=== PATIENT | male | born 1970 | race Caucasian/White ===

== ENCOUNTER → 2017-09-23 | Outpatient (CLI) | payer BC ==
--- NOTE | 2017-09-28 09:12 | XR ---
EXAM TYPE: LUMBAR SPINE X RAY SERIES COMPARISON: NONE HISTORY: Back pain TECHNIQUE: 3 views are submitted. FINDINGS: Alignment is anatomic. The pedicles are intact. The transverse processes are intact. There is no s pondylolysis or spondylolisthesis. Hypertrophic changes spine with multilevel severe degenerative di sc disease and facet arthropathy. Mild diffuse osteopenia. Curvature the spine noted. IMPRESSION: 1. Multilevel severe degenerative disc disease.
== END | disposition home or self-care (01) ==
LOC: RADXRMAIN 08:21
PROVIDERS: ATTEND Family Medicine
DX: M51.36 Other intervertebral disc degeneration, lumbar region (principal)
CPT/HCPCS: 72100

== ENCOUNTER → 2020-07-03 | Outpatient (CLI) | payer BC, OTHER ==
--- NOTE | 2020-07-03 12:31 | CONS ---
CONSULTATION DATE OF SERVICE: 07/03/2020 This 49-year-old gentleman who has been evaluated in Sleep Center for possible obstructive sleep apnea-hypopnea syndrome. HISTORY OF PRESENT ILLNESS/SLEEP-WAKE EVALUATION: The patient's usual sleep schedule on weekdays from 10 to 11 p.m. until 7 to 7:30 a.m. and on weekends from 11 p.m. to 5 or 6 a.m. Usually no problems with falling asleep, although patient has TV in bedroom. Patient prefers to sleep on the side position. He snores loudly according to his , and he wakes up from sleep three or four times with nocturia and sweating. In the morning, patient wakes up tired. Usually does not take naps. [place] Sleepiness Scale is 4. No history of hypnagogic hallucinations, sleep paralysis, or cataplexy. PAST MEDICAL HISTORY: Positive for hypertension, anxiety, low testosterone level. PAST SURGICAL HISTORY: Nasal surgery for nasal septum deviation, left ankle surgery for reconstruction of left ankle secondary to trauma in 1982. MEDICATIONS: Citalopram 20 mg once a day, bupropion 150 mg once a day, lisinopril hydrochlorothiazide 10-12.5 mg once a day, 5 mg once a day, testosterone shots every 2 weeks. FAMILY HISTORY: Cancer, hypertension, thyroid problems. PHYSICAL EXAMINATION: GENERAL: A gentleman without distress. VITAL SIGNS: BP 165/85, HR 68, RR 16, height 6 feet 1/2 inch, weight 275.2 pounds, temperature 97.1, oxygen saturation on room 96%, body mass index 36.9. HEENT: PERRLA, EOMI. Oropharynx extremely low position of soft palate, Mallampati 4, NECK: Wide 18-1/2 inches in circumference. LUNGS: Clear to percussion and to auscultation. Good air exchange. No wheezing or rhonchi. HEART: S1, S2 regular. No murmurs, gallops, or rubs. ABDOMEN: Soft and nontender. Bowel sounds are present. No organomegaly appreciated. EXTREMITIES: No clubbing or cyanosis. CELL MAKER: Awake, alert, and oriented X3. Cranial nerves 2 to 7 intact. There is no fasciculation or atrophy. noted. No focal deficits observed. IMPRESSION: 1. Loud snoring, multiple awakenings from sleep with nocturia, low position of soft palate, Mallampati, wide neck 18-1/2 inches in circumference, obstructive sleep apnea-hypopnea syndrome. 2. Obese, body mass index 36.9. 3. History of anxiety. 4. Low testosterone level. 5. Status post nasal surgery for nasal septum deviation. 6. Status post surgery for trauma of left ankle in 1982. PLAN: 1. Home sleep apnea test for evaluation of patient breathing during sleep. 2. CPAP/BiPAP titration if sleep study confirms obstructive sleep apnea-hypopnea syndrome. 3. Preferable position during sleep on the side. 4. No driving if patient feels any sleepiness. 5. I will see patient for follow up visit to explain results of testing and following plan. Thank you very much for referring this patient for consultation. Sincerely, Gino Kasper MD, PhD, FAASM Diplomat of [employer] [place] [employer] Dehydrator of [facility] [place] MMODL / IJN: [id number] /
== END ==
LOC: SLEEP 10:20
PROVIDERS: ATTEND Internal Medicine
DX: G47.33 Obstructive sleep apnea (adult) (pediatric) (principal); E66.9 Obesity, unspecified; F41.9 Anxiety disorder, unspecified; I10 Essential (primary) hypertension; E34.9 Endocrine disorder, unspecified; Z98.890 Other specified postprocedural states; Z68.36 Body mass index [BMI] 36.0-36.9, adult
CPT/HCPCS: 99211

== ENCOUNTER 2020-09-17 07:58 | Outpatient (CLI) | payer BC, OTHER ==
--- NOTE | 2020-09-18 21:22 | SLS ---
SLEEP STUDY PROCEDURE: CPAP titration. DATE OF SERVICE: 09/17/2020 CLINICAL: Titration with positive air pressure has been done for correction of respiratory abnormalities during sleep. DESCRIPTION OF PROCEDURE: The standard montage for clinical polysomnography included the electroencephalogram, the electrocardiogram, the mentalis surface electromyography and Lead II cardiography. The respiratory battery consisted of measurements of nasal /buccal air flow, pressure transducer measurements from the nose, thoracic and /or abdominal effort and intercostal surface electromyography. Video monitoring has been done to check for any parasomnia events. Nocturnal oxyhemoglobin saturations were obtained by finger oximetry. Step-quispe titration with positive airway pressure was utilized to control respiratory events. RESULTS: During titration, sleep efficiency was normal 91.5%. Latency to sleep onset in normal range 8.9 minutes. Sleep architecture showed good amount of delta sleep 14.9%, and REM sleep slightly decreased to 17.5%. Heart rate in the range between 53 and 91. EMG showed 50.1 periodic limb movements per hour with 3.4 microarousals per hour. CPAP titration done up to the pressure of 10 cm of water. At 9 cm of water, apnea- hypopnea index was 0.7 with oxygen level above 90.2%. The patient was at that pressure in REM sleep for 31 minutes and in non-REM sleep for 52 minutes. IMPRESSION: 1. Severe obstructive sleep apnea-hypopnea syndrome; apnea-hypopnea index 50.4 with oxygen desaturation to 79% most on control with CPAP at 9 cm of water. 2. Severe periodic limb movements have been documented during titration. 3. Obesity, BMI 36.6. 4. History of anxiety. 5. Low testosterone level. 6. Status post nasal surgery for nasal septum deviation. 7. Status post surgery for trauma of left ankle. PLAN: 1. The patient will have treatment with positive air pressure equipment and should use it every night for the whole night. 2. Watching weight. 3. Sleep hygiene with regular time in bed for at least 8 hours. 4. No driving if feeling any sleepiness. 5. I will see the patient for follow up visit to explain the results of the test, recommendations, check compliance with treatment and make any necessary adjustment related to mask fitting, pressure and humidification Thank you very much for allowing me to participate in management of patient's care. Sincerely, Gino Kasper MD, PhD, FAASM Diplomat of [employer] Sleep Medicine Board of [place] [employer] of [employer] Medicine Section Beamer of [facility] [place] MMFLEX / BERNY: [id number] /
== END 2020-09-17 17:28 | disposition home or self-care (01) ==
LOC: SLEEP 07:58
PROVIDERS: ATTEND Internal Medicine
DX: G47.33 Obstructive sleep apnea (adult) (pediatric) (principal); G47.36 Sleep related hypoventilation in conditions classified elsewhere; E66.9 Obesity, unspecified; E29.1 Testicular hypofunction; F41.9 Anxiety disorder, unspecified; Z68.36 Body mass index [BMI] 36.0-36.9, adult; Z98.890 Other specified postprocedural states; Z99.89 Dependence on other enabling machines and devices
CPT/HCPCS: 95811

== ENCOUNTER → 2020-12-26 | Outpatient (CLI) | payer BC, OTHER ==
--- NOTE | 2020-12-26 22:05 | SFUN ---
SLEEP CENTER FOLLOW UP NOTE DATE OF SERVICE: 12/26/2020 This 50-year-old gentleman has been followed in Sleep Center for treatment of obstructive sleep apnea-hypopnea syndrome. The patient had a sleep study which showed that he has extremely severe obstructive sleep apnea-hypopnea syndrome with apnea-hypopnea index 50.4 and oxygen desaturation to 79%, and I discussed results of his sleep studies with the patient in detail. He had titration for correction of respiratory abnormalities, and subsequently I ordered for him a CPAP machine. Today is his first visit after he started to use his CPAP equipment. The patient is able to use his CPAP equipment every night. He sleeps much better with the CPAP unit. No significant problems with the machine, mask fitting or humidification. [place] Sleepiness Scale today is 3, which is perfect. I checked his CPAP unit. Range of the pressure is 7 to 14, average 10.6. Usage / nights and nights for more than 4 hours, average 5.9 hours per night. Leak is 44 L/minute, which is slightly high, but apnea-hypopnea index is absolutely perfect, only 0.3. MEDICATIONS: 1. Lisinopril/hydrochlorothiazide 10/12.5 mg once a day. 2. Citalopram 20 mg once a day. 3. Testosterone shots. PHYSICAL EXAMINATION: GENERAL: Pleasant patient in no distress. VITAL SIGNS: BP 160/93, HR 71, RR 20, height 6 feet 1 inch, weight 283.0, temperature 97, oxygen saturation at room air 97%. HEENT: PERRLA, EOMI, evaluation of oropharynx showed tongue protrudes midline. Extremely low position of soft palate; Mallampati IV. NECK: Supple, no JVD. Thyroid is not palpable. LUNGS: Clear to percussion and to auscultation. Good air exchange. No wheezing or rhonchi. HEART: S1, S2 regular. No murmurs, gallops, or rubs. ABDOMEN: Soft and nontender. Bowel sounds are present. No organomegaly appreciated. EXTREMITIES: No clubbing or cyanosis. CERAMIC CHEMIST: Awake, alert, and oriented X3. Cranial nerves 2 to 7 intact. There is no fasciculation or atrophy. noted. No focal deficits observed. IMPRESSION: 1. Severe obstructive sleep apnea-hypopnea syndrome; apnea-hypopnea index 50.4 with oxygen desaturation to 79%. Patient demonstrated great compliance with treatment. Normal respiration on CPAP. Apnea-hypopnea index 0.3. 2. Obesity. 3. History of anxiety. 4. Low testosterone level. 5. Status post nasal surgery for nasal septum deviation. 6. Status post surgery for trauma of left ankle in 1982. PLAN: 1. I discussed with the patient the necessity to take off all water for the humidifier in the morning and let it dry. 2. Patient will continue to use PAP equipment every night for the whole night. 3. Sleep hygiene with regular time in bed for at least 7-1/2 to 8 hours. 4. Precautions related to driving. No driving if feeling sleepiness. 5. I will maintain all necessary prescription for PAP supplies including mask, tube, filters. 6. Watching weight. 7. Follow-up visit in 6 months or earlier if patient has any problems. Thank you very much for allowing me to participate in the management of your patient. Sincerely, Gino Kasper MD, PhD, FAASM Diplomat of [employer] Sleep Medicine Board of [employer] Board of Internal Medicine Staff Development Manager of [facility] [place] MMODL / KAELYNN: [id number] /
== END ==
LOC: SLEEP 12:56
PROVIDERS: ATTEND Internal Medicine
DX: G47.33 Obstructive sleep apnea (adult) (pediatric) (principal); G47.36 Sleep related hypoventilation in conditions classified elsewhere; E66.9 Obesity, unspecified; F41.9 Anxiety disorder, unspecified; E29.1 Testicular hypofunction; Z99.89 Dependence on other enabling machines and devices; Z98.890 Other specified postprocedural states

== ENCOUNTER → 2021-06-26 | Outpatient (CLI) | payer BC, OTHER ==
--- NOTE | 2021-06-26 13:04 | SFUN ---
SLEEP CENTER FOLLOW UP NOTE DATE OF SERVICE: 06/26/2021 This 50-year-old gentleman has been followed in Sleep Center for treatment of obstructive sleep apnea-hypopnea syndrome. The patient continues to use CPAP equipment every night for the whole night. No significant problems getting his CPAP supplies on time. He is changing his filter at least once a month. [place] Sleepiness Scale today is 5, which is normal. I checked his CPAP unit. Air filter is in good shape. Pressure is in the range of 7 to 14, average 12.8 cm of water. Usage is 30/30 nights and 27/30 nights for more than 4 hours, average 7.1 hours per night. Leak is 32 L/minute, which is borderline. Apnea- hypopnea index is 0.4, which is normal. MEDICATIONS: 1. Citalopram 20 mg once a day. 2. Lisinopril 12.5 mg once a day. 3. Wellbutrin 150 mg once a day. 4. Testosterone shots. PHYSICAL EXAMINATION: GENERAL: Pleasant patient in no distress. VITAL SIGNS: BP 150/77, HR 73, RR 16, weight 283.4, height 6 feet 1 inch, temperature 97.1, oxygen saturation at room air 95%. HEENT: PERRLA, EOMI, evaluation of oropharynx showed tongue protrudes midline. Extremely low position of soft palate; Mallampati IV. NECK: Supple, no JVD. Thyroid is not palpable. LUNGS: Clear to percussion and to auscultation. Good air exchange. No wheezing or rhonchi. HEART: S1, S2 regular. No murmurs, gallops, or rubs. ABDOMEN: Obese. EXTREMITIES: No clubbing or cyanosis. CLOTH DOFFER: Awake, alert, and oriented X3. Cranial nerves 2 to 7 intact. There is no fasciculation or atrophy. noted. No focal deficits observed. IMPRESSION: 1. Severe obstructive sleep apnea-hypopnea syndrome. Original apnea-hypopnea index 50.4. The patient demonstrated practically 100% compliance with treatment, benefitting from treatment. Normal respiration on CPAP. 2. Obesity. 3. History of anxiety. 4. Low testosterone level. 5. Status post nasal surgery for nasal septum deviation. 6. Status post surgery for trauma of left ankle in 1982. PLAN: 1. Patient will continue to use PAP equipment every night for the whole night. 2. Sleep hygiene with regular time in bed for at least 7-1/2 to 8 hours. 3. Precautions related to driving. No driving if feeling sleepiness. 4. I will maintain all necessary prescription for PAP supplies including mask, tube, filters. 5. Watching weight. 6. Follow-up visit in 6 months or earlier if patient has any problems. Thank you very much for allowing me to participate in the management of your patient. Sincerely, Gino Kasper MD, PhD, FAASM Diplomat of [place] [employer]ties Sleep Medicine Board of [place] Board of Internal Medicine Agricultural Education Professor of [facility] [place] MMODL / IJN: [id number] /
== END ==
LOC: SLEEP 10:41
PROVIDERS: ATTEND Internal Medicine
DX: G47.33 Obstructive sleep apnea (adult) (pediatric) (principal); Z99.89 Dependence on other enabling machines and devices; E66.9 Obesity, unspecified; F41.9 Anxiety disorder, unspecified; Z98.890 Other specified postprocedural states; Z86.39 Personal history of other endocrine, nutritional and metabolic disease; Z87.09 Personal history of other diseases of the respiratory system

== ENCOUNTER → 2022-06-25 | Outpatient (CLI) | payer BC, OTHER ==
--- NOTE | 2022-06-25 11:17 | P.PN ---
Subjective DATE: 06/25/2022 FOLLOW UP VISIT. Patient with obstructive sleep apnea hypopnea syndrome return to sleep center for follow-up visit. Information from previous visit have been reviewed. Patient is using PAP equipment every night for the whole night, getting PAP supplies in time. The patient does not have significant problems with the mask, PAP unit and humidification. [place] sleepiness scale is 5, which is normal. I checked information from PAP unit and explaining to the patient in details. PAP unit pressure 7-14, average 12 cm H2O. Usage is 100 % for more then 4 hours, average 7.2 hours per night. Leak is 25 l/m, which is in acceptable range. Apnea Hypopnea Index is perfect 0.2. MEDICATIONS:1. Lisinopril/hydrochlorothiazide 2. Citalopram 20 mg once a day 3. Levocetirizine 5 mg once a day 4. Bupropion 150 mg once a day During physical exam: GENERAL: A pleasant patient without any distress. VITAL SIGNS: BP 180/100, HR 81, RR 16, weight 286.8, temperature 98.2, oxygen saturation at room air 96 % . HEENT: PERRLA, EOMI.low position of soft palate, Mallapati 4 . NECK: Supple. No JVD. LUNGS: Clear to percussion and to auscultation. Good air exchange. No wheezing or rhonchi. HEART: S1, S2 regular. ABDOMEN: Soft and nontender.[] EXTREMITIES: No clubbing or cyanosis. DIVISION SUPERVISOR: Awake, alert, and oriented x3. No focal deficit. Impressions: 1. Obstructive sleep apnea-hypopnea syndrome. Patient demonstrated great compliance with treatment, benefiting from treatment. 2. Obesity, body mass index 38.2, patient increased weight on 3 pounds comparing with previous visit. 3. History of anxiety. 4. Low testosterone level. 5. Status post nasal surgery for nasal septum deviation. 6. Status post surgical treatment for left ankle trauma in the past 1982. Plan: 1. Continue using PAP equipment every night for the whole night. 2. To change air filter at least 1-2 times per month. 3. PAP unit should stay lower then position of the head. 4. Advised patient to remove all remaining water from humidifier canister daily and make it dry after each usage. Refill canister with fresh distilled water before each usage. 5. Sleep hygiene with regular time in bed for at least 8 hours. 6. Precautions related to driving. No driving if feel any sleepiness. 7. I will maintain prescription for PAP supplies including mask, tube, filters. 8. Follow up visit in 6 months or earlier if patient has any problems. 9. Watching and losing weight. Thank you very much for allowing me to participate in the management of your patient. Gino Kasper MD, PhD, FAASM. Diplomat of [place] Board [employer] Sleep Medicine, Sleep Medicine Board by [place] [employer] Medicine Service And Repair Supervisor of [facility] [place]
== END ==
LOC: SLEEP 10:55
PROVIDERS: ATTEND Internal Medicine
DX: G47.33 Obstructive sleep apnea (adult) (pediatric) (principal); E66.9 Obesity, unspecified; Z68.38 Body mass index [BMI] 38.0-38.9, adult; F41.9 Anxiety disorder, unspecified; R63.4 Abnormal weight loss; Z79.899 Other long term (current) drug therapy; Z99.89 Dependence on other enabling machines and devices; Z98.890 Other specified postprocedural states
CPT/HCPCS: 99212

== ENCOUNTER → 2022-08-18 | Outpatient (CLI) | payer BC, OTHER ==
--- NOTE | 2022-08-18 13:55 | CA ---
Transthoracic Echo Report Name: Vlad Maddox Age: 51 Gender: M : 1970 Exam Date: 08/18/2022 08:30 Exam Location: [place] [facility] Ht (in): 74 Wt (lb): 275 Ordering Physician: Skyler Dodson MD Attending/Referring Phys: Skyler Dodson MD Chief Ultrasound Technologist Lisset Taylor [facility] Procedure CPT: Indications: I10 HTN Cardiac Hx: Technical Quality: Fair Contrast 1: Total Dose (mL): Contrast 2: Total Dose (mL): MEASUREMENTS (Male / Female) Normal Values 2D ECHO LV Diastolic Diameter PLAX 5.6 cm 4.2 - 5.9 / 3.9 - 5.3 cm LV Systolic Diameter PLAX 3.4 cm IVS Diastolic Thickness 1.6 cm 0.6 - 1.0 / 0.6 - 0.9 cm LVPW Diastolic Thickness 1.7 cm 0.6 - 1.0 / 0.6 - 0.9 cm LV Relative Wall Thickness 0.6 RV Internal Dim ED PLAX 3.7 cm LA Volume 64.0 cm??? 18 - 58 / 22 - 52 cm??? M-MODE Aortic Root Diameter MM 3.2 cm LA Systolic Diameter MM 4.3 cm LA Ao Ratio MM 1.3 AV Cusp Separation MM 2.2 cm DOPPLER AV Peak Velocity 131.7 cm/s AV Peak Gradient 6.9 mmHg AV Mean Velocity 107.1 cm/s AV Mean Gradient 4.8 mmHg AV Velocity Time Integral 26.9 cm LVOT Peak Velocity 120.2 cm/s LVOT Peak Gradient 5.8 mmHg LVOT Velocity Time Integral 25.7 cm MV Area PHT 4.2 cm??? Mitral E Point Velocity 76.7 cm/s Mitral A Point Velocity 68.3 cm/s Mitral E to A Ratio 1.1 MV Deceleration Time 179.2 ms MV E' Velocity 10.0 cm/s Mitral E to MV E' Ratio 7.7 TR Peak Velocity 172.9 cm/s TR Peak Gradient 12.0 mmHg FINDINGS Left Ventricle Moderately increased left ventricular wall thickness. Left ventricular cavity size normal. Normal left ventricular systolic function with no obvious regional wall motion abnormalities. Left ventricular ejection fraction is estimated at 55-60 %. Right Ventricle Mild right ventricular dilatation. Right ventricular systolic pressure within normal limits. Right Atrium Normal right atrial size. Left Atrium Mildly increased left atrial volume. Mitral Valve Structurally normal mitral valve. No mitral stenosis or prolapse. Mild mitral regurgitation. Aortic Valve Trileaflet aortic valve. No aortic valve stenosis or regurgitation. Tricuspid Valve Structurally normal tricuspid valve. Mild tricuspid regurgitation. Pulmonic Valve Trace pulmonic regurgitation. Pericardium No pericardial effusion. Aorta Normal size aortic root and proximal ascending aorta. CONCLUSIONS Left ventricular ejection fraction 55-60% Moderately increased left ventricular wall thickness Mild mitral regurgitation Mild tricuspid regurgitation No pericardial effusion Previewed by: Dr. Melo Garcia DO (Electronically Signed) Final Date: 18 August 2022 13:54
== END | disposition home or self-care (01) ==
LOC: RADECHMAIN 08:14
PROVIDERS: ATTEND Family Medicine
DX: I08.1 Rheumatic disorders of both mitral and tricuspid valves (principal); I10 Essential (primary) hypertension
CPT/HCPCS: 93306

== ENCOUNTER → 2023-01-20 | Outpatient (CLI) | payer BC, OTHER ==
--- NOTE | 2023-01-20 11:00 | P.PN ---
Subjective DATE: 01/20/2023 FOLLOW UP VISIT. Patient with obstructive sleep apnea hypopnea syndrome return to sleep center for follow-up visit. Information from previous visit have been reviewed. Patient is using PAP equipment every night for the whole night, getting PAP supplies in time. The patient does not have significant problems with the mask, PAP unit and humidification. [place] sleepiness scale is 5, which is normal. I checked information from PAP unit. PAP unit pressure 7-14, average 13.6 cm H2O. Usage is 100 % for more then 4 hours, average 8.1 hours per night. Leak is 25 l/m, which is in acceptable range. Apnea Hypopnea Index is 0.5, which is normal. MEDICATIONS:1. Bupropion 150 mg once a day 2. Irbesartan 300-12.5 mg once a day 3. Citalopram 20 mg once a day During physical exam: GENERAL: A pleasant patient without any distress. VITAL SIGNS: BP 160/93, HR 74, RR 12 , weight 284.2, temperature 98.3, oxygen saturation at room air 97 % . HEENT: PERRLA, EOMI.low position of soft palate, Mallapati 4 . NECK: Supple. No JVD. LUNGS: Clear to percussion and to auscultation. Good air exchange. No wheezing or rhonchi. HEART: S1, S2 regular. ABDOMEN: Soft and nontender.[] EXTREMITIES: No clubbing or cyanosis. AUTOMOBILE AND PROPERTY UNDERWRITER: Awake, alert, and oriented x3. No focal deficit. Impressions: 1. Obstructive sleep apnea-hypopnea syndrome. Patient demonstrated great compliance with treatment, benefiting from treatment. 2. Obesity, BMI 38.5. 3. History of anxiety. 4. History of low testosterone level. 5. Hypertension. 6. Status post nasal surgery for nasal septum deviation. Plan: 1. Continue using PAP equipment every night for the whole night. 2. To change air filter at least 1-2 times per month. 3. PAP unit should stay lower then position of the head. 4. Advised patient to remove all remaining water from humidifier canister daily and make it dry after each usage. Refill canister with fresh distilled water before each usage. 5. Sleep hygiene with regular time in bed for at least 8 hours. 6. Precautions related to driving. No driving if feel any sleepiness. 7. I will maintain prescription for PAP supplies including mask, tube, filters. 8. Watching and losing weight. 9. Follow up visit in 6 months or earlier if patient has any problems. Thank you very much for allowing me to participate in the management of your patient. Gino Kasper MD, PhD, FAASM. Diplomat of [place] [employer] Sleep Medicine, Sleep Medicine Board by [place] [employer] Internal Medicine Director Of [place] of [facility] [place]
== END ==
LOC: 3 N SLEEP 10:31
PROVIDERS: ATTEND Internal Medicine
DX: G47.33 Obstructive sleep apnea (adult) (pediatric) (principal); E66.9 Obesity, unspecified; F41.9 Anxiety disorder, unspecified; I10 Essential (primary) hypertension; Z68.38 Body mass index [BMI] 38.0-38.9, adult; Z79.899 Other long term (current) drug therapy; Z98.890 Other specified postprocedural states; Z99.89 Dependence on other enabling machines and devices; Z86.39 Personal history of other endocrine, nutritional and metabolic disease
CPT/HCPCS: 99212

== ENCOUNTER → 2023-08-05 | Outpatient (CLI) | payer BC, OTHER ==
--- NOTE | 2023-08-05 12:04 | P.PROGSL ---
Subjective DATE: 08/05/2023 FOLLOW UP VISIT. Patient with obstructive sleep apnea hypopnea syndrome return to sleep center for follow-up visit. Information from previous visit have been reviewed. Patient is using PAP equipment every night for the whole night, getting PAP supplies in time. The patient does not have significant problems with the mask, PAP unit and humidification. [place] sleepiness scale is 3, which is normal. I checked information from PAP unit. PAP unit pressure 7-14, average 12.7 cm H2O. Usage is 100% for more then 4 hours, average 8.2 hours per night. Leak is increased to 35 l/m, patient has watkins and mustache. Apnea Hypopnea Index is 0.4, which is normal. MEDICATIONS: Please see below During physical exam: GENERAL: A pleasant patient without any distress. VITAL SIGNS: Please see below, weight 288.8 pounds, BMI 39.0. HEENT: PERRLA, EOMI.low position of soft palate, Mallapati 4 . Slight irritation of the skin of the face probably related to rubbing from the mask. NECK: Supple. No JVD. LUNGS: Clear to percussion and to auscultation. Good air exchange. No wheezing or rhonchi. HEART: S1, S2 regular. ABDOMEN: Soft and nontender. Obese EXTREMITIES: No clubbing or cyanosis. VISUAL JOURNALIST: Awake, alert, and oriented x3. No focal deficit. Impressions: 1. Obstructive sleep apnea-hypopnea syndrome. Patient demonstrated great compliance with treatment, benefiting from treatment. Slight irritation of skin of the face probably related to rubbing from the mask. 2. Obesity, BMI 39.0, patient increased weight on 4 pounds comparing with previous visit. 3. Hypertension. 4. History of anxiety. 5. History of low testosterone level. 6. Status post nasal surgery for nasal septum deviation. Plan: 1. Continue using PAP equipment every night for the whole night. Patient may consider different style of fullface mask. Prescription for liner for full facemask was written. 2. To change air filter at least 1-2 times per month. 3. PAP unit should stay lower then position of the head. 4. Advised patient to remove all remaining water from humidifier canister daily and make it dry after each usage. Refill canister with fresh distilled water before each usage. 5. Sleep hygiene with regular time in bed for at least 8 hours. 6. Precautions related to driving. No driving if feel any sleepiness. 7. I will maintain prescription for PAP supplies including mask, tube, filters. 8. Follow up visit in 6 months or earlier if patient has any problems. 9. Watching and losing weight. Thank you very much for allowing me to participate in the management of your patient. Gino Kasper MD, PhD, FAASM. Diplomat of [place] [employer] Sleep [employer], Sleep Medicine Board by [place] [employer] Medicine Tip Inserter of [facility] [place] Objective - Vital Signs Vital Signs: Intake & Output 08/04/23 08/05/23 08/05/23 18:59 06:59 18:59 Weight 130.861 kg Home Medications: Home Medications Medication Instructions Recorded Confirmed Type Celecoxib 200 mg PO DAILY 08/05/23 08/05/23 History Citalopram Hydrobromide 20 mg PO DAILY 08/05/23 08/05/23 History [Citalopram HBr] Irbesartan/Hydrochlorothiazide 300 mg PO DAILY 08/05/23 08/05/23 History [Irbesartan-Hctz 300-12.5 mg Tb] Levocetirizine Dihydrochloride 5 mg PO DAILY 08/05/23 08/05/23 History amLODIPine BESYLATE 5 mg PO DAILY 08/05/23 08/05/23 History buPROPion HCL [buPROPion HCL Xl] 150 mg PO DAILY 08/05/23 08/05/23 History
== END ==
LOC: 3 N SLEEP 11:10
PROVIDERS: ATTEND Internal Medicine
DX: G47.33 Obstructive sleep apnea (adult) (pediatric) (principal); E66.9 Obesity, unspecified; L24.9 Irritant contact dermatitis, unspecified cause; I10 Essential (primary) hypertension; Z86.59 Personal history of other mental and behavioral disorders; Z98.890 Other specified postprocedural states; Z86.39 Personal history of other endocrine, nutritional and metabolic disease; Z99.89 Dependence on other enabling machines and devices; Z68.39 Body mass index [BMI] 39.0-39.9, adult; Z79.899 Other long term (current) drug therapy
CPT/HCPCS: 99212

== ENCOUNTER → 2024-05-18 | Outpatient (CLI) | payer BC, OTHER ==
[2024-05-18 11:00] VITALS: BP 155/83; PULSE 81; RESP 16; TEMP 98.5
--- NOTE | 2024-05-18 12:00 | P.PROGSL ---
Subjective DATE: 05/18/2024 FOLLOW UP VISIT. Patient with obstructive sleep apnea hypopnea syndrome return to sleep center for follow-up visit. Information from previous visit have been reviewed. Patient is using PAP equipment every night for the whole night, getting PAP supplies in time. The patient does not have significant problems with the mask, PAP unit and humidification. [place] sleepiness scale is 3. I checked information from PAP unit. PAP unit pressure 7-14, average 13.6 cm H2O. Usage is 100% for more then 4 hours, average 7.9 hours per night. Leak is 34 l/m, which is in acceptable range. Apnea Hypopnea Index is 0.7, which is normal. MEDICATIONS have been reviewed, please see below. During physical exam: GENERAL: A pleasant patient without any distress. VITAL SIGNS: Please see below, weight is 291.6 lbs. HEENT: PERRLA, EOMI.low position of soft palate, [place] 4 . NECK: Supple. No JVD. LUNGS: Clear to percussion and to auscultation. Good air exchange. No wheezing or rhonchi. HEART: S1, S2 regular. ABDOMEN: Soft and nontender.[] EXTREMITIES: No clubbing or cyanosis. ENVIRONMENTAL COMPLIANCE ENGINEER: Awake, alert, and oriented x3. No focal deficit. Impressions: 1. Obstructive sleep apnea-hypopnea syndrome. Patient demonstrated great compliance with treatment, benefiting from treatment. 2. Obesity, BMI 39.6, patient increased his weight on 3 pounds comparing with previous visit. 3. Hypertension. 4. History of anxiety. 5. History of low testosterone level. 6. Status post nasal surgery for nasal septum deviation. Plan: 1. Continue using PAP equipment every night for the whole night. 2. Sleep hygiene with regular time in bed for at least 7.5-8 hours 3. PAP unit should stay lower then position of the head. 4. Advised patient to remove all remaining water from humidifier canister daily and make it dry after each usage. Refill canister with fresh distilled water before each usage. 5. Watching and losing weight. 6. Precautions related to driving. No driving if feel any sleepiness. 7. I will maintain prescription for PAP supplies including mask, tube, filters. 8. Follow up visit in 8 months or earlier if patient has any problems. Thank you very much for allowing me to participate in the management of your patient. Gino Kasper MD, PhD, FAASM. Diplomat of [place] [employer], Sleep Medicine Board by [place] [employer] Membership Sales Advisor of [facility] [place] Objective - Vital Signs Vital Signs: Vital Signs Temp 98.5 F 05/18/24 10:55 Pulse 81 05/18/24 10:55 Resp 16 05/18/24 10:55 BP 155/83 05/18/24 10:55 Pulse Ox 93 L 05/18/24 10:55 FiO2 Intake & Output 05/17/24 05/18/24 05/18/24 18:59 06:59 18:59 Weight 132.165 kg Home Medications: Home Medications Medication Instructions Recorded Confirmed Type Celecoxib 200 mg PO DAILY 08/05/23 08/05/23 History Citalopram Hydrobromide 20 mg PO DAILY 08/05/23 05/18/24 History [Citalopram HBr] Irbesartan/Hydrochlorothiazide 300 mg PO DAILY 08/05/23 05/18/24 History [Irbesartan-Hctz 300-12.5 mg Tb] Levocetirizine Dihydrochloride 5 mg PO DAILY 08/05/23 05/18/24 History amLODIPine BESYLATE 5 mg PO DAILY 08/05/23 05/18/24 History buPROPion HCL [buPROPion HCL Xl] 150 mg PO DAILY 08/05/23 05/18/24 History
== END ==
LOC: 3 N SLEEP 10:32
PROVIDERS: ATTEND Internal Medicine
DX: G47.33 Obstructive sleep apnea (adult) (pediatric) (principal); E66.9 Obesity, unspecified; Z68.39 Body mass index [BMI] 39.0-39.9, adult; I10 Essential (primary) hypertension; Z86.59 Personal history of other mental and behavioral disorders; Z86.39 Personal history of other endocrine, nutritional and metabolic disease; Z98.890 Other specified postprocedural states
CPT/HCPCS: 99212